=== PATIENT | female | born 1995 | race African-American/Black ===

== ENCOUNTER 2018-10-16 13:00 | Emergency (ER) | payer SELFPAY ==
[2018-10-16 13:10] VITALS: BP 134/71
--- NOTE | 2018-10-16 13:14 | ER Document Report ---
ED Medical Screen (RME) - General Chief Complaint: Cyst Stated Complaint: POSSIBLE ABSCESS Time Seen by Provider: 10/16/18 13:11 Notes: 23-year-old female patient with a right axillary hidradenitis suppurativa. She reports she had surgical excision of the left axilla 2 years ago, and has not had problems in that area since then. After that surgery was done, she began having problems in the right axilla. I have greeted and performed a rapid initial assessment of this patient. A comprehensive ED assessment and evaluation of the patient, analysis of test results and completion of the medical decision making process will be conducted by additional ED providers. TRAVEL OUTSIDE OF THE [place] IN LAST 30 DAYS: No - Related Data Allergies/Adverse Reactions: No Known Allergies Allergy (Verified 10/16/18 13:02) Past Medical History Renal/ Medical History: Denies: Hx Peritoneal Dialysis Physical Exam - Vital signs Vitals: Temp Pulse BP Pulse Ox 98.4 F 86 134/71 H 98 10/16/18 13:08 10/16/18 13:08 10/16/18 13:08 10/16/18 13:08 Course - Vital Signs Vital signs: Temp Pulse Resp BP Pulse Ox 98.4 F 86 134/71 H 98 10/16/18 13:08 10/16/18 13:08 10/16/18 13:08 10/16/18 13:08
[2018-10-16] MEDS ORDERED: LIDOCAINE 1% INJ-PF (10 MG/ML) 30 ML SDV INJ ONE (13:51)
--- NOTE | 2018-10-16 14:07 | ER Document Report ---
ED General - General Chief Complaint: Cyst Stated Complaint: POSSIBLE ABSCESS Time Seen by Provider: 10/16/18 13:11 TRAVEL OUTSIDE OF THE [place] IN LAST 30 DAYS: No - HPI Notes: Patient is a 23-year-old female with a history of hydradenitis Suppurativa who presents to the emergency department c/o right axilla purulence, abscess, and pain over the last few weeks. Patient states that she had similar issues with her left axilla, but had a surgery performed for her hydradenitis. Patient states that she is otherwise eating and drinking without difficulty. She has not noticed any red streaking. She denies drug allergies. No other concerns or complaints. No history of MRSA. Denies any headache, fever, neck pain, URI, sore throat, chest pain, palpitations, syncope, cough, shortness of breath, whee ze, dyspnea, abdominal pain, nausea/vomiting/diarrhea, urinary retention, dysuria, hematuria. - Related Data Allergies/Adverse Reactions: No Known Allergies Allergy (Verified 10/16/18 13:02) Past Medical History - Social History Smoking Status: Unknown if Ever Smoked Family History: Reviewed & Not Pertinent Patient has suicidal ideation: No Patient has homicidal ideation: No Renal/ Medical History: Denies: Hx Peritoneal Dialysis Review of Systems - Review of Systems -: Yes All other systems reviewed and negative Physical Exam - Vital signs Vitals: Temp Pulse BP Pulse Ox 98.4 F 86 134/71 H 98 10/16/18 13:08 10/16/18 13:08 10/16/18 13:08 10/16/18 13:08 - Notes Notes: PHYSICAL EXAMINATION: GENERAL: Well-appearing, well-nourished and in no acute distress. LUNGS: Breath sounds clear to auscultation bilaterally and equal. No wheezes rales or rhonchi. HEART: Regular rate and rhythm without murmurs, rubs, gallops. Musculoskeletal: FROM to passive/active. Strength 5+/5. Extremities: No cyanosis, clubbing, or edema b/l. Peripheral pulses 2+. Capillary refill less than 3 seconds. NEUROLOGICAL: Normal speech, normal gait. Normal sensory, motor exams PSYCH: Normal mood, normal affect. SKIN: Rt Axilla: the axilla has multiple areas of purulence and induration (appears to be channeling to one another). + tenderness. Course - Re-evaluation Re-evalutation: 10/16/18 14:07 I did consult with Dr. Jalloh, surgeon, who will come evaluate the patient. 10/16/18 14:21 Patient is an afebrile, well-hydrated, 21-year-old female who presents to the ED with fistula tracking secondary to her hydradenitis to her right axilla. Vitals are acceptable without significant tachycardia, tachypnea, or hypoxia. PE is otherwise unremarkable. No labs or imaging warranted at this time. The surgeon would like doxycycline and Motrin to be prescribed with a follow-up in his office next week. Patient is in agreement with this plan. Low suspicion for any acute or life-threatening condition at this time. Patient aware that condition can change from initial presentation and she needs to monitor symptoms closely and seek medical attention with any acute changes. Recheck with a surgeon as scheduled next week. Return to the ED with any other worsening/concerning symptoms otherwise as reviewed. Patient is in agreement. - Vital Signs Vital signs: Temp Pulse Resp BP Pulse Ox 98.4 F 86 134/71 H 98 10/16/18 13:08 10/16/18 13:08 10/16/18 13:08 10/16/18 13:08 Discharge - Discharge Clinical Impression: Axillary hidradenitis suppurativa Condition: Stable Disposition: HOME, SELF-CARE Instructions: Doxycycline ([facility]) Additional Instructions: Keep the skin clean Wash with soap and water Tylenol/ibuprofen if needed Triple antibiotic ointment daily Take medication as directed Monitor for any worsening symptoms Recheck with your PCM as needed Follow-up with the general surgeon next week* Return to the ED with any worsening symptoms and/or development of fever, headache, chest pain, palpitations, syncope, shortness of breath, trouble breathing, abdominal pain, n/v/d, abscess, purulent discharge, red streaks, worsening swelling, or other worsening symptoms that are concerning to you. Prescriptions: Doxycycline Hyclate 100 mg PO BID #20 capsule Ibuprofen [Ibu] 800 mg PO BID #20 tablet Forms: Elevated Blood Pressure Referrals: OMAR JALLOH MD [ACTIVE STAFF] - Follow up in 1 week
--- NOTE | 2018-10-16 15:05 | PDOC CONSULTATION ---
Consultation Consult Date: 10/16/18 Consult reason:: Right axillary hidradenitis, pain, drainage History of Present Illness History of Present Illness: IVANA ULLOA is a 23 year old female seen in consultation at the request of the emergency room physician. This is a patient with a long history of bilateral axillary and inguinal hidradenitis. The patient had a previous surgery on her left axilla for similar complaints. The patient reports a several month history of swelling, pain, and drainage of the right axilla. The patient recently moved to [place], and has not seen a physician for this complaint. Patient reports that she is having increased drainage and tenderness, and felt that it should be examined by a physician. Nothing makes her symptoms better or worse. Her pain does not radiate. Currently she rates her pain as a 4 out of 10. Currently the patient denies fevers or chills. She denies nausea, vomiting, chest pain, shortness of breath, headache, dizziness, blurry vision, fatigue, malaise, sore throat. Past Medical History Skin Medical History: Reports: Other - Axillary and inguinal hidradenitis Past Surgical History Past Surgical History: Reports: Other - Left axillary skin excision for hidradenitis Social History Smoking Status: Never Smoker Frequency of Alcohol Use: None Family History Family History: Reviewed & Not Pertinent Parental Family History Reviewed: Yes Children Family History Reviewed: Yes Sibling(s) Family History Reviewed.: Yes Medication/Allergy Home Medications: Doxycycline Hyclate 100 mg PO BID #20 capsule 10/16/18 Ibuprofen [Ibu] 800 mg PO BID #20 tablet 10/16/18 Allergies/Adverse Reactions: No Known Allergies Allergy (Verified 10/16/18 13:02) Review of Systems Constitutional: ABSENT: anorexia, chills, fatigue, fever(s) Eyes: ABSENT: visual disturbances Nose, Mouth, and Throat: ABSENT: sore throat Cardiovascular: ABSENT: chest pain, palpitations Respiratory: ABSENT: cough, dyspnea Gastrointestinal: ABSENT: abdominal pain, nausea, vomiting Genitourinary: ABSENT: dysuria Musculoskeletal: ABSENT: back pain Integumentary: ABSENT: pruritus, rash Neurological: ABSENT: confusion, convulsions, dizziness Psychiatric: ABSENT: anxiety, depression Endocrine: ABSENT: cold intolerance, heat intolerance Hematologic/Lymphatic: ABSENT: easy bleeding, easy bruising Physical Exam Vital Signs: Temp Pulse Resp BP Pulse Ox 98.4 F 86 134/71 H 98 10/16/18 13:08 10/16/18 13:08 10/16/18 13:08 10/16/18 13:08 Intake & Output 10/15/18 10/16/18 10/17/18 06:59 06:59 06:59 Weight 90.718 kg General appearance: PRESENT: no acute distress, cooperative Head exam: PRESENT: atraumatic, normocephalic Eye exam: PRESENT: EOMI, PERRLA. ABSENT: scleral icterus Mouth exam: PRESENT: neck supple Teeth exam: ABSENT: poor dentation Neck exam: ABSENT: meningismus, tenderness, thyromegaly, tracheal deviation Respiratory exam: PRESENT: clear to auscultation melina, unlabored. ABSENT: chest wall tenderness, tachypnea, wheezes Cardiovascular exam: PRESENT: RRR Pulses: PRESENT: normal radial pulses Vascular exam: PRESENT: normal capillary refill. ABSENT: pallor GI/Abdominal exam: PRESENT: soft. ABSENT: distended, firm, tenderness Rectal exam: PRESENT: deferred Extremities exam: ABSENT: clubbing Musculoskeletal exam: ABSENT: deformity Neurological exam: PRESENT: alert, awake, oriented to person, oriented to place, oriented to time, oriented to situation, CN II-XII grossly intact. ABSENT: motor sensory deficit Psychiatric exam: ABSENT: agitated, anxious, depressed Focused psych exam: ABSENT: delusional Skin exam: PRESENT: other - Multiple fistula tracts present in the right axilla. Small amount of seropurulent drainage. No fluctuance. Minimal tenderness. No erythema.. ABSENT: erythema Assessment & Plan - Diagnosis (1) Axillary hidradenitis suppurativa Is this a current diagnosis for this admission?: Yes - Plan Summary Plan Summary: This is a 23-year-old female with extensive right axillary hidradenitis. At present, there is not a drainable abscess. I have discussed options with the patient and her mother at length. The patient is amenable to surgical resection of the hidradenitis. I plan for antibiotic therapy as an outpatient, with close follow-up. I will prescribe her doxycycline 100 mg p.o. twice daily. Hopefully any significant induration and purulence can be controlled with antibiotics. This will allow for a greater possibility of resection with primary closure at a later time. I will see the patient in my office next week. I have encouraged the patient to contact me immediately with any new questions or concerns.
== END 2018-10-16 15:14 | disposition home or self-care (01) ==
LOC: ER 13:00
DX: L73.2 Hidradenitis suppurativa (principal); L02.412 Cutaneous abscess of left axilla
CPT/HCPCS: 99282